=== PATIENT | male | born 1985 | race Caucasian/White ===

== ENCOUNTER 2017-02-25 10:08 | Emergency (ER) | payer BC, OTHER ==
[~2017-02-25] VITALS: Ht 177.8 cm; Wt 62.9 kg
[~2017-02-25 10:08] MED LIST: TYLOTC500 PO
[2017-02-25 10:10] VITALS: TEMP 37.1; Ht 177.8 cm; Wt 62.9 kg
[2017-02-25] MEDS ORDERED: AMX500 PO (10:28)
[2017-02-25] MEDS ORDERED: OXYCODONE HCL IR 5 MG TAB (IMMEDIATE RELEASE) PO STA (10:32)
[2017-02-25] MEDS ORDERED: OXYC1TAB3 PO (11:05)
--- NOTE | 2017-02-25 11:06 | EMERGENCY ROOM VISIT NOTE ---
History First contact with patient: 10:25 Chief Complaint: DENTAL PAIN Stated Complaint: SEVERE TOOTH PAIN/PAIN IS AT LEVEL 10 History of Present Illness The patient is a 31 year old male who presents to the Emergency Room with complaints of "severe tooth pain/pain is at level 10". The patient states that he had a right upper feeling fall out 2 months ago, he states that he was seen by his dentist to have this pulled, but unfortunately he notes he did not feel comfortable doing so. He then notes he developed pain on the bottom right posterior molar as well. He has been experiencing pain in these teeth since that time. He points to tooth #1, and 32. He denies any drainage. He states that he is called various oral surgeons in the area but is unable to be seen until late next week. He denies any fevers or chills. He at this point is that he would like to be admitted if his pain persists. Review of Systems A complete 6-point Review of Systems was discussed with the patient, with pertinent positives and negatives listed in the History of Present Illness. All remaining Review of Systems questions can be considered negative unless otherwise specified. Past Medical/Surgical History Medical Problems: (1) Depressive Disorder Nec (2) Suicidal Ideation (3) Tobacco Use Disorder Social History Smoking Status: Current Every Day Smoker Alcohol Use: occasionally Marital Status: single Occupation Status: employed Current/Historical Medications Scheduled Amoxicillin (Amoxicillin), 1 CAP PO Q8 Scheduled PRN Acetaminophen (Tylenol), 1,000 MG PO Q6 PRN for Pain Oxycodone Ir (Roxicodone Ir), 1-2 TAB PO Q6 PRN for Pain Physical Exam Vital Signs Date Time Temp Pulse Resp B/P (MAP) Pulse Ox O2 Delivery O2 Flow Rate FiO2 02/25/17 11:12 61 16 133/84 98 02/25/17 10:10 37.1 52 16 143/90 99 Room Air Physical Exam VITAL SIGNS - Vital signs and nursing notes were reviewed. Stable. GENERAL - 31-year-old male appearing his stated age who is in no acute distress. Communicates well with provider and answers questions appropriately. SKIN - Without rashes. HEAD - NC/AT. EYES - PERRL with EOMI bilaterally. Sclera anicteric. EARS - No deformities of external structures noted on gross examination bilaterally. No pain elicited with palpation of the tragus bilaterally. External auditory canals without discharge or otorrhea. Tympanic membranes pearly [place] without retraction or bulging. No fluid or purulent material visualized behind the TM. Handle of malleus, umbo, cone of light, pars tensa/ flaccid all easily visualized. NOSE - Midline and without cyanosis. No epistaxis or purulent drainage noted. Septum midline without deviation or septal hematoma noted. MOUTH/OROPHARYNX - Without perioral cyanosis. Buccal mucosa pink and moist and without leukoplakia. Tongue midline with equal elevation of palate bilaterally. No tonsillar hypertrophy, erythema, or exudates noted. Overall fair dentition noted. The tooth #1 and 32 are in fair repair on my examination. NECK - Neck with FROM. Supple to palpation. No lymphadenopathy noted. No nuchal rigidity. LUNGS - Chest wall symmetric without accessory muscle use, intercostals retractions, or central cyanosis. Normal vesicular breath sounds CTA B/L. No wheezes, rales, or rhonchi appreciated. CARDIAC - RRR with S1/S2. No murmur, rubs, or gallops appreciated. Medical Decision & Procedures Medications Administered Medications (Trade) Dose Ordered Sig/[place] Route Start Time Stop Time Status Last Admin Dose Admin Oxycodone HCl (Roxicodone Immediate Rel Tab) 5 mg NOW STAT PO 02/25/17 10:32 02/25/17 10:34 DC 02/25/17 10:38 5 MG Medical Decision Patient was seen and evaluated as above. He presents to us today with dental pain. He is nontoxic on examination. He was given 1 OxyIR for his pain. I then enlisted the help of our keycase assembler here, to help see if we can establish the patient an appointment today with the oral surgeon. She was able to successfully find an oral surgeon in [place] who was willing to see the patient, and participated with his insurance. Patient was then discharged home here with a short prescription for OxyIR for his pain, of which she is to take in addition to his amoxicillin, and is to go directly to that appointment. His mother will be driving. He was educated upon management, educated upon worrisome symptoms which to return, had questions answered prior to discharge, and was discharged home in good condition. In the evaluation and treatment of this patient, the following differential diagnoses were considered: Periapical Abscess, Osteonecrosis of the Jaw, Dental Fracture, Dental Caries, Jorge L's Angina, Vincent's Angina, Facial Cellulitis. [facility] Drug Monitoring Program Search Results: patient reviewed within database, no issues identified Impression Primary Impression: Odontalgia Departure Information Dispostion Home / Self-Care Condition GOOD Prescriptions Oxycodone Ir (Roxicodone Ir) 5 Mg Tab 1-2 TAB PO Q6 Y for Pain, #15 TAB For Initial Treatment Prov: Ian Franz PA-C 02/25/17 Referrals No Doctor, Assigned (PCP) Patient Instructions [facility] Additional Instructions You have been treated in the Emergency Department for Dental Pain. You have received pain medicine in the emergency department which impairs your ability to operate a vehicle. It is illegal for you to drive after receiving these medicines. You have been prescribed Oxy ir to be used for pain control. This is a narcotic medication. You cannot drive or consume alcohol while on this medicine. This medicine should only be used for pain that cannot be controlled with over-the- counter pain medicines. Please continue the amoxicillin as previously prescribed. For pain control, you can use the following [id number] medicines: - Regular strength (325mg/tab) Tylenol (acetaminophen) 2 tabs every 4-6 hours as needed. Do not exceed 12 tablets in a 24 hour period. Avoid taking more than 3 grams (3000 mg) of Tylenol per day. This includes any other sources of acetaminophen you may take on a regular basis. - Regular strength (200 mg/tab) Advil (ibuprofen) 1-2 tabs every 4-6 hours as needed. Do not exceed a dose of 3200 mg per day. Refrain from smoking cigarettes or using chewing tobacco until you have been evaluated by your dentist. Keeping beverages lukewarm and consuming soft foods can decrease your pain. Warm compresses over the affected area may offer some relief. Please keep your appointment for today with the dentist. Return to the emergency department if you develop the following symptoms despite treatment course outlined above: fever, intractable pain, increased redness, swelling, or purulent discharge. Please return with any new/concerning symptoms.
[2017-02-25 11:12] VITALS: BP 133/84; PULSE 61; O2SAT 98
== END 2017-02-25 11:14 | disposition home or self-care (01) ==
LOC: C.EDB 10:09 → C.EDA 11:14
DX: K08.89 Other specified disorders of teeth and supporting structures (principal); F32.9 Major depressive disorder, single episode, unspecified; F17.210 Nicotine dependence, cigarettes, uncomplicated